=== PATIENT | female | born 1985 | race Caucasian/White ===

== ENCOUNTER 2020-04-08 14:42 | Emergency (ER) | payer BC, SELFPAY ==
--- NOTE | ~2020-04-08 | XR_ITS ---
XR foot LT min 3V 04/08/2020 15:04 INDICATION: Left foot pain PROCEDURE: 4 views left foot COMPARISON: 07/20/2020 FINDINGS: Fracture, dislocation or subluxation is not identified. Lisfranc joint intact. The soft tis sues appear within normal limits. No foreign bodies are identified. IMPRESSION: 1: NO ACUTE BONE OR JOINT ABNORMALITY IDENTIFIED. Reviewed, dictated and finalized at location A.
[2020-04-08 15:07] VITALS: BP 138/91; PULSE 83; RESP 16; TEMP 37.6; O2SAT 99
--- NOTE | 2020-04-08 15:14 | ED.LOWEXIN ---
HPI - Extremity Injury (Lower) General Chief Complaint: Extremity Injury, Lower Stated Complaint: injury left foot Time Seen by Provider: 04/08/20 15:14 Source: patient and RN notes reviewed Mode of arrival: ambulatory Limitations: no limitations History of Present Illness HPI Narrative: This is a 35 years old female presented office for evaluation of left foot injury prior to arrival. She was lifting a cabinet and it fell onto her foot. She tried ice prior to arrival. Denies p.o. medication prior to arrival for pain. Denies history of foot fracture in the past. Denies any other injury. Related Data Allergies Allergy/AdvReac Type Severity Reaction Status Date / Time No Known Allergies Allergy Unverified 04/08/20 15:00 Review of Systems Review of Systems: Narrative: CONSTITUTIONAL: Denies feeling ill CARDIOVASCULAR: Denies chest pain RESPIRATORY: Denies dyspnea GASTROINTESTINAL: Denies abdominal pain, nausea, vomiting SKIN: Reports a little redness and swollen over the foot MUSCULOSKELETAL: Reports left foot pain without numbness or tingling sensation NEUROLOGIC: Denies lightheaded All other systems reviewed are negative, except as documented in HPI. PMFSH Comments At time of signature, I agree with nursing past medical, surgical, social and family history. There is no relevant family history pertinent to the presenting complaint. Exam Narrative: Exam Narrative: GENERAL: This is a well-nourished, well-developed patient, in no apparent distress. CARDIOVASCULAR: Regular rate and rhythm without murmurs, gallops, or rubs. RESPIRATORY: Clear to auscultation. Breath sounds equal bilaterally. No wheezes, rales, or rhonchi. GASTROINTESTINAL: Abdomen soft, non-tender, nondistended. Bowel sounds are active. No hepato-splenomegaly, or palpable masses. No guarding. SKIN: warm, intact with no suspicious lesions or rash, good texture and turgor. NEURO: awake, alert, and oriented to person, place and time. There were no obvious focal neurologic abnormalities. EXTREMITIES: Right foot is normal. Left lateral ankle not swollen but there is tenderness and swelling over the mid aspect of dorsum of the foot. Range of motion limited secondary to pain. No deformity. The skin is intact. Pedal pulses intact. Course Vital Signs Vital signs: Vital Signs Temperature 99.7 F H 04/08/20 15:07 Pulse Rate 83 04/08/20 15:07 Respiratory Rate 16 04/08/20 15:07 Blood Pressure 138/91 H 04/08/20 15:07 Pulse Oximetry 99 04/08/20 15:07 Temperature 99.7 F H 04/08/20 15:07 Pulse Rate 83 04/08/20 15:07 Respiratory Rate 16 04/08/20 15:07 Blood Pressure 138/91 H 04/08/20 15:07 Pulse Oximetry 99 04/08/20 15:07 MDM - Extremity Injury (Lower) MDM Narrative Medical decision making narrative: Patient is Urgent/Emergent. BP elevated due to current condition w/o HTN in PMH (Measure Met). Discharge instructions reviewed with patient, as well as provided in writing per nursing staff. The instructions also include specific and strict return/GO TO THE ER as well as f/u information. All questions have been answered, and the patient deny any further questions with discharge and discharge plan. Differential Diagnosis Differential diagnosis: Likely puncture wound of foot and fracture of toe Imaging Data Attestation: I personally reviewed and interpreted this imaging study as follows: My impression: see report Radiologist's impression: XR foot LT min 3V 04/08/2020 15:04 INDICATION: Left foot pain PROCEDURE: 4 views left foot COMPARISON: 07/20/2020 FINDINGS: Fracture, dislocation or subluxation is not identified. Lisfranc joint intact. The soft tissues appear within normal limits. No foreign bodies are identified. IMPRESSION: 1: NO ACUTE BONE OR JOINT ABNORMALITY IDENTIFIED. Critical Care Time Critical Care Time Critical Care Time: No Discharge Plan Discharge Clinical Impression: Injury of foot, left Qualifiers:
== END 2020-04-08 15:26 | disposition home or self-care (01) ==
PROVIDERS: Emergency Provider Nurse Practitioner; PCP Family Medicine
DX: S90.32XA Contusion of left foot, initial encounter (principal); W22.8XXA Striking against or struck by other objects, initial encounter
CPT/HCPCS: 73630; 99213; G0463